=== PATIENT | female | born 1955 | race Caucasian/White ===

== ENCOUNTER 2022-11-10 05:21 | Day surgery (SDC) | payer OTHER ==
[2022-11-09 11:00] VITALS: BMI 29.2
[2022-11-10] MEDS ORDERED: PHENAZOPYRIDINE HCL 100 MG TABLET (FP) PO ONE (06:30)
[2022-11-10] MEDS ORDERED: ACETAMINOPHEN 1000 MG/100 ML BAG IVPB ONE ×2 (06:30→10:36)
[2022-11-10] MEDS ORDERED: CEFAZOLIN SODIUM 2 GM in DEXTROSE 5%-WATER 100 ML IVPB ONE (06:30)
[2022-11-10] MEDS ORDERED: PROPOFOL 20 ML ONE (07:12)
[2022-11-10] MEDS ORDERED: HYDROmorphone HCl 2 MG/ML VIAL ONE (07:12)
[2022-11-10] MEDS ORDERED: MIDAZOLAM HCL 2 MG/2 ML SINGLE DOSE VIAL ONE (07:12)
[2022-11-10] MEDS ORDERED: ROCURONIUM BROMIDE 50 MG/5 ML SYRINGE ONE ×2 (07:13→08:45)
[2022-11-10] MEDS ORDERED: ONDANSETRON 4 MG/2 ML VIAL ONE ×2 (07:13→12:10)
[2022-11-10] MEDS ORDERED: DEXAMETHASONE SOD PHOSPHATE 4 MG/1 ML VIAL ONE (07:13)
[2022-11-10] MEDS ORDERED: LIDOCAINE HCL/PF 2% SDV 5ML VIAL ONE (07:13)
[2022-11-10] MEDS ORDERED: SEVOFLURANE 250 ML BTL ONE (07:16)
[2022-11-10] MEDS ORDERED: BUPIVACAINE LIPOSOME/PF (EXPAREL) 266 MG/20 ML VIAL ONE (07:17)
[2022-11-10] MEDS ORDERED: BUPIVACAINE HCL/PF 0.5% (5MG/ML) 10 ML VIAL ONE (07:17)
[2022-11-10] MEDS ORDERED: TRANEXAMIC ACID 1000 MG/10 ML VIAL IVPUSH ONE (07:30)
[2022-11-10] MEDS ORDERED: ceFAZolin SODIUM 1 GM VIAL ONE (08:16)
[2022-11-10] MEDS ORDERED: TRANEXAMIC ACID 1000 MG/10 ML VIAL ONE (08:16)
[2022-11-10] MEDS ORDERED: SUGAMMADEX SODIUM 200 MG/2 ML VIAL ONE (08:18)
[2022-11-10] MEDS ORDERED: ceFAZolin SODIUM 1 GM VIAL IVPB ONE (08:32)
[2022-11-10] MEDS ORDERED: KETOROLAC TROMETHAMINE 30 MG/1 ML VIAL ONE (09:42)
[2022-11-10] MEDS ORDERED: ACETAMINOPHEN INJECTION 100 ML IVPB ONE (10:34)
[2022-11-10] MEDS ORDERED: PROMETHAZINE HCL 25 MG/1 ML VIAL IVPB PRN (10:34)
[2022-11-10] MEDS ORDERED: ONDANSETRON 4 MG/2 ML VIAL IVPUSH PRN ×2 (10:34→10:35)
[2022-11-10] MEDS ORDERED: oxyCODONE HCL 5 MG TABLET PO PRN ×5 (10:34→11:02)
[2022-11-10] MEDS ORDERED: SIMETHICONE 80 MG TAB.CHEW (FP) PO PRN (10:35)
[2022-11-10] MEDS ORDERED: BISACODYL 5 MG TABLET.DR (FP) PO PRN (10:35)
[2022-11-10] MEDS ORDERED: DOCUSATE SODIUM 100 MG CAPSULE (FP) PO PRN (10:35)
[2022-11-10] MEDS ORDERED: LACTATED RINGERS SOLUTION 1,000 ML IV SCH (10:45)
[2022-11-10] MEDS ORDERED: PATIENT'S OWN MEDICATION (NON-FORMULARY) (Hydroxyzine Hcl [Hydroxyzine Hcl] 25 MG Tablet) PO PRN (10:53)
[2022-11-10] MEDS: ACETAMINOPHEN 1000 MG/100 ML BAG IVPB SCH ×2 (10:59→20:51)
[2022-11-10] MEDS ORDERED: ONDANSETRON 4 MG/2 ML VIAL IVPUSH ONE (12:12)
[2022-11-10] MEDS ORDERED: PROMETHAZINE HCL 25 MG/1 ML VIAL ONE (12:27)
[2022-11-10] MEDS ORDERED: PROMETHAZINE HCL 25 MG/1 ML VIAL IVPB ONE (12:28)
[2022-11-10] MEDS ORDERED: hydrOXYzine PAMOATE 25 MG CAPSULE (FP) PO ONE (13:45)
[2022-11-10] MEDS: CEFAZOLIN 1 GM in DEXTROSE 5%-WATER - 50 ML IVPB SCH (16:39)
[2022-11-10] MEDS: IBUPROFEN 800 MG/8 ML IJ IVPB SCH (18:05)
[2022-11-10 20:13] LABS: HEMATOCRIT 38.9 % (32.4-45.2); HEMOGLOBIN 12.5 GM/dL (10.7-15.3); MCH 28.8 pg (25.7-33.7); MEAN PLT VOLUME 11.4 fl (7.5-11.1); PLATELET COUNT 159 10^3/uL (134-434); RBC 4.32 M/mm3 (3.60-5.2); RDW 13.9 % (11.6-15.6); WHITE BLOOD COUNT 10.4 K/mm3 (4.0-10.0)
[2022-11-10 20:29] LABS: POTASSIUM 4.3 mmol/L (3.5-5.1)
[2022-11-10 20:30] LABS: CALCIUM 9.2 mg/dL (8.5-10.1)
[2022-11-10 20:31] LABS: BLOOD UREA NITROGEN 8.3 mg/dL (7-18)
[2022-11-10 20:34] LABS: CREATININE 0.8 mg/dL (0.55-1.3)
[2022-11-10] MEDS ORDERED: hydrOXYzine PAMOATE 25 MG CAPSULE (FP) PO SCH (22:00)
[2022-11-11] MEDS: CEFAZOLIN 1 GM in DEXTROSE 5%-WATER - 50 ML IVPB SCH ×2 (00:17→07:45)
[2022-11-11] MEDS: IBUPROFEN 800 MG/8 ML IJ IVPB SCH (01:39)
[2022-11-11] MEDS: ACETAMINOPHEN 1000 MG/100 ML BAG IVPB SCH (05:36)
[2022-11-11 08:07] LABS: HEMATOCRIT 37.8 % (32.4-45.2); HEMOGLOBIN 12.4 GM/dL (10.7-15.3); MCH 29.4 pg (25.7-33.7); MCHC 32.9 g/dl (32.0-36.0); MEAN CELL VOLUME 89.4 fl (80-96); MEAN PLT VOLUME 11.7 fl (7.5-11.1); PLATELET COUNT 150 10^3/uL (134-434); RBC 4.23 M/mm3 (3.60-5.2); RDW 13.6 % (11.6-15.6)
[2022-11-11 08:21] LABS: POTASSIUM 4.4 mmol/L (3.5-5.1)
[2022-11-11 08:23] LABS: BLOOD UREA NITROGEN 7.9 mg/dL (7-18); CALCIUM 9.3 mg/dL (8.5-10.1)
[2022-11-11 08:26] LABS: CREATININE 0.7 mg/dL (0.55-1.3)
[2022-11-11] MEDS ORDERED: LISINOPRIL 10 MG TABLET PO SCH (10:00)
[2022-11-11] MEDS ORDERED: IBUPROFEN 600 MG TABLET (FP) PO SCH (10:00)
[2022-11-11] MEDS ORDERED: ENOXAPARIN NA (PORCINE) 40 MG/0.4 ML DISP.SYRIN SQ SCH (10:00)
[2022-11-11] MEDS ORDERED: LORATADINE 10 MG TABLET PO SCH (10:00)
[2022-11-11] MEDS ORDERED: FAMOTIDINE 20 MG TABLET PO SCH (10:00)
[2022-11-11 10:58] VITALS: BP 133/74; PULSE 67; RESP 18; TEMP 98.6
[2022-11-11] MEDS ORDERED: ACETAMINOPHEN 325 MG TABLET (FP) PO SCH (13:00)
== END 2022-11-11 13:00 | disposition home or self-care (01) ==
LOC: JASU-SURG 05:21 → JASUSAT 05:21 → J3W 14:18 → JASUSAT 11-11 13:00
PROVIDERS: ATTEND Obstetrics & Gynecology
PROC: 0UT9FZZ Resection of Uterus, Via Natural or Artificial Opening With Percutaneous Endoscopic Assistance (ICD-10-PCS; principal; 2022-11-10 07:30)
PROC: 0UT7FZZ Resection of Bilateral Fallopian Tubes, Via Natural or Artificial Opening With Percutaneous Endoscopic Assistance (ICD-10-PCS; 2022-11-10 07:30)
DX: D25.9 Leiomyoma of uterus, unspecified (principal); D25.1 Intramural leiomyoma of uterus; R10.2 Pelvic and perineal pain
CPT/HCPCS: 58552; S2900; 36415; 80048; 85027; 86850; 86900; 86901; 88302-TC; 88307-TC; 88341-TC; 88342-TC; 94010; 94760